=== PATIENT | female | born 1940 | race Caucasian/White ===

== ENCOUNTER 2020-07-13 17:54 | Emergency (ER) | payer MEDICARE, SELFPAY ==
[2020-07-13 18:22] VITALS: BP 156/94; PULSE 76; RESP 18; TEMP 36.7; O2SAT 99; BMI 38.2
[2020-07-13 21:21] VITALS: BP 145/88; PULSE 68; RESP 16; O2SAT 99
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
== END 2020-07-13 21:24 | disposition home or self-care (01) ==
PROVIDERS: Emergency Provider Emergency Medicine; PCP Family Medicine
DX: T24.211A Burn of second degree of right thigh, initial encounter (principal); X10.0XXA Contact with hot drinks, initial encounter; Z79.01 Long term (current) use of anticoagulants
CPT/HCPCS: 12345; 99281; 99282

== ENCOUNTER → 2020-07-22 11:55 | Outpatient (BNVA) | payer MEDICARE, SELFPAY | PROVIDERS: PCP Family Medicine; Visit Provider Nurse Practitioner | DX: M25.571 Pain in right ankle and joints of right foot (principal); M79.89 Other specified soft tissue disorders | CPT/HCPCS: 73630 ==

== ENCOUNTER → 2020-07-25 14:34 | Outpatient (BNVA) | payer MEDICARE, SELFPAY | PROVIDERS: PCP Family Medicine; Visit Provider Podiatrist Foot & Ankle Surgery | DX: M25.571 Pain in right ankle and joints of right foot (principal); M79.89 Other specified soft tissue disorders | CPT/HCPCS: 73610 ==